=== PATIENT | female | born 1980 | race Caucasian/White ===

== ENCOUNTER 2016-05-02 10:07 | Day surgery (SDC) | payer BC ==
--- NOTE | ~2016-05-02 | EGD ---
EGD REPORT [facility] [address] [address] NAME: BRITTANI APODACA : [birth year] [place]US : [place] [facility] [place] [id number] AGE: 36 ADM/REG DATE : 05/02/16 MR#: [id number] REPORT SERV DATE: 05/02/16 DICTATED BY: TONIA BRANHAM DATE: 05/02/16 REPORT STATUS : Draft TRANSCRIBED BY: [facility] DATE: 05/02/16 Endoscopy Center Patient Name: Brittani Apodaca Date of : 1980 Attending MD: TONIA BRANHAM MD Procedure Date No Time: 05/02/2016 Procedure: Upper GI endoscopy Indications: Epigastric abdominal pain, Dysphagia, Heartburn Referring MD: Janna Cho Medicines: Propofol per Anesthesia Complications: No immediate complications. Procedure: Pre-Anesthesia Assessment: - ASA Grade Assessment: III - A patient with severe systemic disease. After obtaining informed consent, the endoscope was passed under direct vision. Throughout the procedure, the patient's blood pressure, pulse, and oxygen saturations were monitored continuously. The GIF [id number] was introduced through the mouth, and advanced to the third part of duodenum. The upper GI endoscopy was accomplished without difficulty. The patient tolerated the procedure well. Findings: LA Grade A (one or more mucosal breaks less than 5 mm, not extending between tops of 2 mucosal folds) esophagitis with no bleeding was found in the lower third of the esophagus. No endoscopic abnormality was evident in the esophagus to explain the patient's complaint of dysphagia. It was decided, however, to proceed with dilation. A guidewire was placed and the scope was withdrawn. Dilation was performed with a Savary dilator with mild resistance at 60 Fr. The esophagus looked satisfactory post dilation A small hiatus hernia was present. Seen on retroflexion, done prior to dilation Diffuse mild inflammation characterized by congestion (edema) and erythema was found in the entire examined stomach. Biopsies were taken with a cold forceps for Helicobacter pylori testing. Localized mild inflammation characterized by congestion (edema) and erythema was found in the duodenal bulb. Biopsies were taken with a cold forceps for evaluation of celiac disease. And giardia, whipple's disease, and enteritis The 2nd part of the duodenum and 3rd part of the duodenum were normal. Biopsies were taken with a cold forceps for evaluation of celiac disease. And giardia, whipple's disease, and enteritis EGD REPORT [address] [place]. [address] NAME: BRITTANI APODACA : [birth year] STATUS : [place] [facility] [place]#: [id number] AGE: 36 ADM/REG DATE : 05/02/16 MR#: [id number] REPORT SERV DATE: 05/02/16 DICTATED BY: TONIA BRANHAM DATE: 05/02/16 REPORT STATUS : Draft TRANSCRIBED BY: [facility] DATE: 05/02/16 Impression: - LA Grade A reflux esophagitis. - No endoscopic esophageal abnormality to explain patient's dysphagia. Esophagus dilated. Dilated. - Hiatus hernia. - Gastritis. Biopsied. - Duodenitis. Biopsied. - Normal 2nd part of the duodenum and 3rd part of the duodenum. Biopsied. Recommendation: - Patient has a contact number available for emergencies. The signs and symptoms of potential delayed complications were discussed with the patient. Return to normal activities tomorrow. Written discharge instructions were provided to the patient. - diet is clear liquid today, full liquid tomorrow, soft mushy food the next day, and resume usual diet the day after that. - Continue present medications. - Use Aciphex (rabeprazole) 20 mg PO daily. - take 30-60 minutes before breakfast - Use Prilosec OTC 20 mg PO daily. - take 30-60 minutes before supper. - Use sucralfate tablets 1 gram PO QID. - take before each meal and at bedtime - Return to my office as previously scheduled. - Discharge patient to home. Procedure Code(s): --- Professional --- 23275, Esophagogastroduodenoscopy, flexible, transoral; with insertion of guide wire followed by passage of dilator(s) through esophagus over guide wire 05401, Esophagogastroduodenoscopy, flexible, transoral; with biopsy, single or multiple Diagnosis Code(s): --- Professional --- K21.0, Gastro-esophageal reflux disease with esophagitis R13.10, Dysphagia, unspecified K44.9, Diaphragmatic hernia without obstruction or gangrene K29.70, Gastritis, unspecified, without bleeding K29.80, Duodenitis without bleeding R10.13, Epigastric pain R12, Heartburn CPT copyright 2013 [employer]. All rights reserved. EGD REPORT [facility] [address] [place] [address] [place] [address] NAME: BRITTANI APODACA : [birth year] STATUS : [place] [facility] [place]#: [id number] AGE: 36 ADM/REG DATE : 05/02/16 MR#: [id number] REPORT SERV DATE: 05/02/16 DICTATED BY: TONIA BRANHAM DATE: 05/02/16 REPORT STATUS : Draft TRANSCRIBED BY: [employer] DATE: 05/02/16 The codes documented in this report are preliminary and upon claim investigator review may be revised to meet current compliance requirements. Tonia Branham MD TONIA BRANHAM MD 05/02/2016 12:01 PM This report has been signed electronically. Number of Addenda: 0 Note Initiated On: 05/02/2016 11:07 AM Scope Withdrawal Time 0 hours 0 minutes [address] [place] [address] [place] [address]
[~2016-05-02 10:07] MED LIST: ACIPHEX PO; BENTYL10 PO; LEXAPRO10 PO; LEXAPRO20 PO; MAXALT10 MG PO; NEUR300 PO; NORCO1 TA2 PO; PRILOSEC40 MG PO; PROAIR HFA INH; PROTONIX PO; PULMICORT180 MCG INH; SUCR PO; TOPAMAX25 PO; TOPAMAX50 MG PO; WELLXL150 PO; ZANTAC300 MG PO; ZYRTEC ALLGY10 MG PO
== END 2016-05-02 23:59 | disposition home or self-care (01) ==
LOC: DMU 10:07
PROVIDERS: Internal Medicine Gastroenterology
PROC: 0D758ZZ Dilation of Esophagus, Via Natural or Artificial Opening Endoscopic (ICD-10-PCS; principal; 2016-05-02 10:30)
PROC: 0DJ08ZZ Inspection of Upper Intestinal Tract, Via Natural or Artificial Opening Endoscopic (ICD-10-PCS; 2016-05-02 10:30)
DX: K29.70 Gastritis, unspecified, without bleeding (principal); K29.80 Duodenitis without bleeding; G47.33 Obstructive sleep apnea (adult) (pediatric); J44.9 Chronic obstructive pulmonary disease, unspecified; K44.9 Diaphragmatic hernia without obstruction or gangrene; K21.0 Gastro-esophageal reflux disease with esophagitis; M19.90 Unspecified osteoarthritis, unspecified site; Z88.0 Allergy status to penicillin; Z91.040 Latex allergy status; Z88.1 Allergy status to other antibiotic agents; Z88.5 Allergy status to narcotic agent; Z88.8 Allergy status to other drugs, medicaments and biological substances; Z98.51 Tubal ligation status; Z90.710 Acquired absence of both cervix and uterus; Z90.49 Acquired absence of other specified parts of digestive tract
CPT/HCPCS: 88305